=== PATIENT | female | born 1935 | race Caucasian/White ===

== ENCOUNTER → 2016-12-03 | Outpatient (CLI) | payer MEDICARE, OTHER ==
[~2016-12-03] MED LIST: AMLO1CAP13 PO; CALC-586 PO; FLUC150T PO; LEVO50TA11 PO; MICO30CR TOP; PROP15DR BOTH EYES; PSYL3.4P2 PO
== END ==
LOC: WC.BC 08:46
DX: Z12.31 Encounter for screening mammogram for malignant neoplasm of breast (principal)
CPT/HCPCS: 77063; G0202